=== PATIENT | female | born 1975 | race Caucasian/White ===

== ENCOUNTER 2017-11-01 12:12 | Emergency (ER) | payer BC ==
--- NOTE | 2017-11-01 12:32 | EDM.PDOC ---
ED HPI GENERAL MEDICAL PROBLEM - General Chief Complaint: Lower Extremity Injury/Pain Stated Complaint: left leg pain Time Seen by Provider: 11/01/17 12:31 Source of Information: Reports: Patient History Limitations: Reports: No Limitations - History of Present Illness INITIAL COMMENTS - FREE TEXT/NARRATIVE: HISTORY AND PHYSICAL: History of present illness: Patient is a 42-year-old female who presents to the emergency room with complaints of localized left inner calf pain and redness. She has noticed over the past 2 weeks she has had some dyspnea. Patient states she has a history of DVT and was previously on anticoagulants. She found out she had low QT which required her to stop her oral coagulant therapy. She denies any fever, chills, chest pain, abdominal pain, nausea, vomiting or diarrhea. Denies any recent injury or trauma. Review of systems: As per history of present illness and below otherwise all systems reviewed and negative. Past medical history: As per history of present illness and as reviewed below otherwise noncontributory. Surgical history: As per history of present illness and as reviewed below otherwise noncontributory. Social history: No reported history of drug or alcohol abuse. Family history: As per history of present illness and as reviewed below otherwise noncontributory. Physical exam: General: Well-developed and well-nourished 42-year-old female. Alert and oriented. Nontoxic appearing and in no acute distress. HEENT: Atraumatic, normocephalic, pupils equal and reactive bilaterally, negative for conjunctival pallor or scleral icterus, mucous membranes moist, throat clear, neck supple, nontender, trachea midline. No drooling or trismus noted. No meningeal signs Lungs: Clear to auscultation, breath sounds equal bilaterally, chest nontender. Heart: S1S2, regular rate and rhythm without overt murmur Abdomen: Soft, nondistended, nontender. Negative for masses or hepatosplenomegaly. Negative for costovertebral tenderness. Pelvis: Stable nontender. Genitourinary: Deferred. Rectal: Deferred. Skin: Small quarter sized area of redness which is tender to palpation, consistent with a superficial phlebitis. Multiple varicosities noted to the bilateral lower extremities. Otherwise skin is Intact, warm, dry. No lesions or rashes noted. Extremities: Atraumatic, moves all extremities per self without difficulty or deficits, negative for cords or calf pain. Neurovascular unremarkable. Neuro: Awake, alert, oriented. Cranial nerves II through XII unremarkable. Cerebellum unremarkable. Motor and sensory unremarkable throughout. Exam nonfocal. Notes: Lab work is within normal limits. Chest x-ray shows no infiltrate or pneumonia. Ultrasound of the left lower extremity shows no evidence of DVT. I did discuss the risks versus benefits of doing a CTA at this time, she would like the CT done to rule out a PE. I think this is appropriate as she does have high risk due to her comorbidities. CTA shows no acute cardiopulmonary findings. No pulmonary embolism was identified. There is a vague 2 cm asymmetrical annular tissue noted at the 3 o' clock position on the left breast. Did share these findings with the patient. She did state she is aware of the breast mass and does have a diagnostic mammogram coming up in a week. I encouraged her to follow with this closely. Other labs and ultrasound reports were shared with her. I encouraged her to use her NAMRATA hose. Rest ice elevate the extremities. In follow-up with her primary care provider. She voices understanding and is agreeable to plan of care. She denies any further questions at this time. Diagnostics: CBC, CMP, Troponin, Venous ultrasound, EKG, CXR, CTA Therapeutics: [] Impression: Superficial phlebitis, left lower extremity Plan: 1. Please use your NAMRATA hose while awake. 2. Rest and elevate the extremities when able. 3. Follow-up with your primary caregiver in the next 1-2 days. Return to the ED as needed and as discussed. Definitive disposition and diagnosis as appropriate pending reevaluation and review of above. lower leg and chest Pain Score (Numeric/FACES): 2 - Related Data Allergies Allergy/AdvReac Type Severity Reaction Status Date / Time No Known Allergies Allergy Verified 03/21/14 23:12 Home Meds: Home Meds Lisinopril 10 mg PO DAILY 03/21/14 [History] Propranolol [Inderal LA 24 Hr] 80 mg PO DAILY 11/01/17 [History] metFORMIN HCl [Metformin HCl ER] 500 mg PO BEDTIME 11/01/17 [History] Past Medical History Cardiovascular History: Reports: Hypertension, Other (See Below) Other Cardiovascular History: Lower QT 1 Hematologic History: Reports: Other (See Below) Other Hematologic History: DVT and bilateral vascular - Infectious Disease History Infectious Disease History: Reports: Chicken Pox - Past Surgical History HEENT Surgical History: Reports: Naso-Sinus Surgery GI Surgical History: Reports: Appendectomy, Cholecystectomy Female Surgical History: Reports: Kidney stone extraction, Lithotripsy/ESWL Social & Family History - Family History Family Medical History: Noncontributory - Tobacco Use Smoking Status *Q: Never Smoker Second Hand Smoke Exposure: No - Caffeine Use Caffeine Use: Reports: None - Alcohol Use Days Per Week of Alcohol Use: 1 Number of Drinks Per Day: 1 Total Drinks Per Week: 1 - Recreational Drug Use Recreational Drug Use: No Review of Systems - Review of Systems Review Of Systems: ROS reveals no pertinent complaints other than HPI. ED EXAM, GENERAL - Physical Exam Exam: See Below (See dictation) Course - Vital Signs Last Recorded V/S: Last Vital Signs Temp 97.3 F 11/01/17 12:22 Pulse 77 11/01/17 12:22 Resp 20 11/01/17 12:22 BP 146/94 H 11/01/17 12:22 Pulse Ox 100 11/01/17 12:22 - Orders/Labs/Meds Orders: Active Orders 24 hr Category Date Time Status EKG Documentation Completion [RC] STAT Care 11/01/17 12:30 Active Labs: Laboratory Tests 11/01/17 11/01/17 11/01/17 Range/Units 12:37 12:37 12:37 WBC 5.67 (4.0-11.0) K/uL RBC 4.90 (4.30-5.90) M/uL Hgb 14.8 (12.0-16.0) g/dL Hct 43.2 (36.0-46.0) % MCV 88.2 (80.0-98.0) fL MCH 30.2 (27.0-32.0) pg MCHC 34.3 (31.0-37.0) g/dL RDW Std Deviation 41.8 (28.0-62.0) fl RDW Coeff of Nandini 13 (11.0-15.0) % Plt Count 276 (150-400) K/uL MPV 9.80 (7.40-12.00) fL Neut % (Auto) 67.3 (48.0-80.0) % Lymph % (Auto) 22.8 (16.0-40.0) % [place] % (Auto) 7.6 (0.0-15.0) % Eos % (Auto) 1.9 (0.0-7.0) % Baso % (Auto) 0.4 (0.0-1.5) % Neut # (Auto) 3.8 (1.4-5.7) K/uL Lymph # (Auto) 1.3 (0.6-2.4) K/uL [place] # (Auto) 0.4 (0.0-0.8) K/uL Eos # (Auto) 0.1 (0.0-0.7) K/uL Baso # (Auto) 0.0 (0.0-0.1) K/uL Nucleated RBC % 0.0 /100WBC Nucleated RBCs # 0 K/uL INR 1.07 Sodium 141 (136-145) mmol/L Potassium 3.9 (3.5-5.1) mmol/L Chloride 103 (98-107) mmol/L Carbon Dioxide 30.1 (21.0-32.0) mmol/L BUN 12 (7.0-18.0) mg/dL Creatinine 0.7 (0.6-1.0) mg/dL Est Cr Clr Drug Dosing 113.21 mL/min Estimated GFR (MDRD) > 60.0 ml/min Glucose 119 H (74-106) mg/dL Calcium 9.7 (8.5-10.1) mg/dL Total Bilirubin 0.5 (0.2-1.0) mg/dL AST 23 (15-37) IU/L ALT 31 (14-63) IU/L Alkaline Phosphatase 66 (46-116) U/L Troponin I < 0.050 (0.000-0.056) ng/mL Total Protein 7.5 (6.4-8.2) g/dL Albumin 4.4 (3.4-5.0) g/dL Globulin 3.1 (2.0-3.5) g/dL Albumin/Globulin Ratio 1.4 (1.3-2.8) Meds: Medications Discontinued Medications Generic Name Dose Route Start Last Admin Trade Name Freq PRN Reason Stop Dose Admin Iopamidol 50 ml 11/01/17 14:09 11/01/17 14:11 Isovue Multipack-370 (76%) IVPUSH 11/01/17 14:10 50 ml ONETIME STA Administration Departure - Departure Time of Disposition: 14:33 Disposition: Home, Self-Care 01 Clinical Impression: Superficial phlebitis of left leg - Discharge Information Referrals: Sukumar Walker MD [Primary Care Provider] - Forms: ED Department Discharge Additional Instructions: The following information is given to patients seen in the emergency department who are being discharged to home. This information is to outline your options for follow-up care. We provide all patients seen in our emergency department with a follow-up referral. The need for follow-up, as well as the timing and circumstances, are variable depending upon the specifics of your emergency department visit. If you don't have a primary care physician on staff, we will provide you with a referral. We always advise you to contact your personal physician following an emergency department visit to inform them of the circumstance of the visit and for follow-up with them and/or the need for any referrals to a consulting specialist. The emergency department will also refer you to a specialist when appropriate. This referral assures that you have the opportunity for follow-up care with a specialist. All of these measure are taken in an effort to provide you with optimal care, which includes your follow-up. Under all circumstances we always encourage you to contact your private physician who remains a resource for coordinating your care. When calling for follow-up care, please make the office aware that this follow-up is from your recent emergency room visit. If for any reason you are refused follow-up, please contact the [facility] Emergency Department at and asked to speak to the emergency department charge nurse. [facility] [address] [place] [id number] 1. Please use your NAMRATA hose while awake. 2. Rest, warm compresses and elevate the extremities when able. 3. Follow-up with your primary care provider provider about the breast/ mammogram. 4. Follow-up with your primary caregiver in the next 1-2 days. Return to the ED as needed and as discussed. - My Orders Last 24 Hours: My Active Orders 11/01/17 12:30 EKG Documentation Completion [RC] STAT - Assessment/Plan Last 24 Hours: My Active Orders 11/01/17 12:30 EKG Documentation Completion [RC] STAT
[2017-11-01 13:16] LABS: CHLORIDE,CL 103 mmol/L (98-107); SODIUM,NA 141 mmol/L (136-145)
--- NOTE | 2017-11-01 13:17 | US ---
ULTRASOUND EXAMINATION OF the left lower extremity WITH DOPPLER HISTORY: Chest discomfort FINDINGS: Examination of the left leg was performed from the groin to the calf region. All visualized segments including common femoral, proximal greater saphenous, superficial femoral, popliteal and calf veins appear patent with good compressibility and augmentation. There is no evidence of deep vein thrombos is. IMPRESSION: No evidence of a DVT.
--- NOTE | 2017-11-01 13:18 | CR ---
EXAMINATION: Portable chest radiograph. HISTORY: Chest discomfort. FINDINGS: The trachea is midline. The cardiomediastinal silhouette is within normal limits. No pulmonary infilt rates, effusions or pneumothorax. Osseous structures appear unremarkable. IMPRESSION: No acute cardiopulmonary process.
[2017-11-01] MEDS ORDERED: Iopamidol 755 MG/ML 500 ML Multipack Bottle IVPUSH STA (14:09)
--- NOTE | 2017-11-01 14:25 | CT ---
EXAMINATION: CTA chest HISTORY: Chest pain COMPARISON: Radiograph from the same day. TECHNIQUE: Contiguous CT imaging obtained through the chest following the administration of 50 mL of Isovue-370 in the left antecubital fossa. Coronal and sagittal reconstructions obtained. FINDINGS: The lungs are clear without focal consolidation. No pleural effusion or pneumothorax. Mild air trapping within the right lung base. The heart is normal in size without a pericardial effusion. No mediastinal or hilar lymphadenopathy. The thoracic aorta is normal in caliber. The main and centra l pulmonary arteries are patent. Central airways are clear. There is a 2 cm asymmetric area within the left breast at the approximate 2 to 3:00 position. No susp icious osseous abnormalities identified. IMPRESSION: 1. No acute cardiopulmonary findings. 2. Vague 2 cm asymmetric area within the left breast. This may represent asymmetric glandular tissue however correlation with mammography is recommended. 3. No pulmonary embolism identified.
== END 2017-11-01 14:47 | disposition home or self-care (01) ==
LOC: MW.ED 12:12
DX: I80.02 Phlebitis and thrombophlebitis of superficial vessels of left lower extremity (principal); I10 Essential (primary) hypertension; Z79.899 Other long term (current) drug therapy
CPT/HCPCS: 36415; 71045; 71275; 80053; 84484; 85025; 85610; 93971; 99284; Q9967

== ENCOUNTER 2018-03-26 21:16 | Emergency (ER) | payer BC ==
--- NOTE | 2018-03-26 21:23 | EDM.PDOC ---
<Imelda Dai - Last Filed: 03/26/18 23:06> ED HPI GENERAL MEDICAL PROBLEM - General Stated Complaint: BLOODY NOSE HAS BEEN BLEEDING FOR AN HOUR Time Seen by Provider: 03/26/18 21:23 - History of Present Illness INITIAL COMMENTS - FREE TEXT/NARRATIVE: This is Dr. Dai dictating addendum note as I have assumed care of this case at 10 PM. The patient's history and physical as as above and her last chemotherapy was approximately 10 days ago. Patient has me that she has had a copious runny nose over the last several days and has been wiping it and manipulating it more than usual and this may be the etiology of this minor bleed. The patient had a nose clip on prior to my examination and the patient had bilateral mucosal excoriation especially along the septum bilaterally and there was no 1 area of discrete bleeding identified. The turbinates were slightly engorged. Wrist no bleeding in the posterior oropharynx. Afrin was instilled and we will continue to observe the patient. She is aware that her hemoglobin is 11.4 and her WBC count is 2.23 with an ANC of 379. I've advised her that she does need to contact her provider regarding her ANC but she is aware that she was going to be low anywhere from 10-16 days and she is right in that window. She has had no fevers and currently has no bleeding identified. The patient is on Xarelto and I've advised her that if we do not place a pack today that she will have to be especially watchful and thoughtful about any manipulation of the nose as with the excoriation that I've seen a can rebleed any time. I also instructed the patient on how to apply petroleum jelly to the mucosa of the nose to give it some for protection. I strongly advised her to contact her provider tomorrow about her counts and have strongly advised her to return to ED as needed. She will go home with a nasal clip. Impression: Anterior epis axis resolved with history of recent chemotherapy and Xarelto use for DVT Neutropenia with history of recent chemotherapy - Related Data Allergies Allergy/AdvReac Type Severity Reaction Status Date / Time No Known Allergies Allergy Verified 03/26/18 21:30 Home Meds: Home Meds Lisinopril 10 mg PO DAILY 03/21/14 [History] Propranolol [Inderal LA 24 Hr] 80 mg PO DAILY 11/01/17 [History] metFORMIN HCl [Metformin HCl ER] 500 mg PO BEDTIME 11/01/17 [History] Rivaroxaban [Xarelto] 10 mg PO DAILY 03/26/18 [History] ED ROS ENT - Review of Systems Review Of Systems: ROS reveals no pertinent complaints other than HPI. ED EXAM, ENT - Physical Exam Exam: See Below (See dictation) Course - Vital Signs Last Recorded V/S: Last Vital Signs Temp 96.6 F 03/26/18 23:22 Pulse 75 03/26/18 23:22 Resp BP 137/93 H 03/26/18 23:22 Pulse Ox 99 03/26/18 23:22 - Orders/Labs/Meds Labs: Laboratory Tests 03/26/18 03/26/18 Range/Units 21:56 21:56 WBC 2.23 L (4.0-11.0) K/uL RBC 3.77 L (4.30-5.90) M/uL Hgb 11.4 L (12.0-16.0) g/dL Hct 33.7 L (36.0-46.0) % MCV 89.4 (80.0-98.0) fL MCH 30.2 (27.0-32.0) pg MCHC 33.8 (31.0-37.0) g/dL RDW Std Deviation 47.9 (28.0-62.0) fl RDW Coeff of Nandini 15 (11.0-15.0) % Plt Count 173 (150-400) K/uL MPV 9.50 (7.40-12.00) fL Add Manual Diff YES Neutrophils % (Manual) 14 L (48.0-80.0) % Band Neutrophils % 3 % Lymphocytes % (Manual) 67 H (16.0-40.0) % Monocytes % (Manual) 16 H (0.0-15.0) % Nucleated RBC % 0.0 /100WBC Absolute Seg Neuts 0.3 L (1.4-5.7) Band Neutrophils # 0.1 Lymphocytes # (Manual) 1.5 (0.6-2.4) Monocytes # (Manual) 0.4 (0.0-0.8) Nucleated RBCs # 0 K/uL INR 1.10 Meds: Medications Discontinued Medications Generic Name Dose Route Start Last Admin Trade Name Freq PRN Reason Stop Dose Admin Oxymetazoline HCl 1 ml 03/26/18 21:57 03/26/18 22:28 Afrin Original 0.05% Nasal [place] MITCH 03/26/18 21:58 4 spray ONETIME ONE Administration Departure - Departure Time of Disposition: 23:07 Disposition: Home, Self-Care 01 Condition: Good Clinical Impression: Epistaxis Neutropenia Qualifiers: Neutropenia type: secondary to cancer chemotherapy Qualified Code(s): D70.1 - Agranulocytosis secondary to cancer chemotherapy; T45.1X5A - Adverse effect of antineoplastic and immunosuppressive drugs, initial encounter - Discharge Information Instructions: Nosebleed, [id number] Referrals: PCP,None [Primary Care Provider] - Forms: ED Department Discharge Additional Instructions: The following information is given to patients seen in the emergency department who are being discharged to home. This information is to outline your options for follow-up care. We provide all patients seen in our emergency department with a follow-up referral. The need for follow-up, as well as the timing and circumstances, are variable depending upon the specifics of your emergency department visit. If you don't have a primary care physician on staff, we will provide you with a referral. We always advise you to contact your personal physician following an emergency department visit to inform them of the circumstance of the visit and for follow-up with them and/or the need for any referrals to a consulting specialist. The emergency department will also refer you to a specialist when appropriate. This referral assures that you have the opportunity for followup care with a specialist. All of these measure are taken in an effort to provide you with optimal care, which includes your followup. Under all circumstances we always encourage you to contact your private physician who remains a resource for coordinating your care. When calling for followup care, please make the office aware that this follow-up is from your recent emergency room visit. If for any reason you are refused follow-up, please contact the [facility] emergency department at and ask to speak to the emergency department charge nurse. [facility] Primary care- Internal Medicine and Family [address] [address] Please moisturize the nasal lining as we showed with Vaseline or petroleum- based products and gently using a Q-tip. Please try to avoid manipulation of your nose and if bleeding or oozing restarts please apply the clip. Return to ER as needed and as discussed. Please contact her provider/oncologist regarding your count numbers for further advice regarding that. <Raphael Hernandez E - Last Filed: 03/29/18 11:57> ED HPI GENERAL MEDICAL PROBLEM - General Source of Information: Reports: Patient History Limitations: Reports: No Limitations - History of Present Illness INITIAL COMMENTS - FREE TEXT/NARRATIVE: HISTORY AND PHYSICAL: History of present illness: Patient is a 42-year-old female who presents to the emergency room with complaints of a nosebleed. She states she was walking out of the grocery store when her left there started bleeding. She tried to apply pressure but did have multiple clots and continuous bleeding regardless of her attempt. She is currently on Xarelto as she has had a DVT in the past. She is currently undergoing chemotherapy for breast cancer. Does plan to have mastectomy in the near future. She denies any recent injury, trauma or falls. Denies any fever, chills, chest pain, shortness of breath or cough. Denies any GI or symptoms. Denies any headache, change in vision, syncope or near syncope. Review of systems: As per history of present illness and below otherwise all systems reviewed and negative. Past medical history: As per history of present illness and as reviewed below otherwise noncontributory. Surgical history: As per history of present illness and as reviewed below otherwise noncontributory. Social history: No reported history of drug or alcohol abuse. Family history: As per history of present illness and as reviewed below otherwise noncontributory. Physical exam: General: Well-developed and well-nourished 42-year-old female. Alert and oriented. Nontoxic appearing and in no acute distress. HEENT: Atraumatic, normocephalic, pupils equal and reactive bilaterally, negative for conjunctival pallor or scleral icterus, mucous membranes moist, throat clear, neck supple, nontender, trachea midline. No drooling or trismus noted. No meningeal signs Lungs: Clear to auscultation, breath sounds equal bilaterally, chest nontender. Heart: S1S2, regular rate and rhythm without overt murmur Abdomen: Soft, nondistended, nontender. Negative for masses or hepatosplenomegaly. Negative for costovertebral tenderness. Pelvis: Stable nontender. Genitourinary: Deferred. Rectal: Deferred. Skin: Intact, warm, dry. No lesions or rashes noted. Extremities: Atraumatic, negative for cords or calf pain. Neurovascular unremarkable. Neuro: Awake, alert, oriented. Cranial nerves II through XII unremarkable. Cerebellum unremarkable. Motor and sensory unremarkable throughout. Exam nonfocal. Notes: Nasal clamp was placed on the nares well out to sit for approximately 15 minutes. Patient is agreeable to lab work. Did explain to the patient that she may need a Rhino Rocket if the epistaxis does not subside with direct pressure. She voices understanding and is agreeable to plan of care. Diagnostics: CBC, PT/INR Therapeutics: Nasal Clamp, Afrin Nasal [place] Impression: Plan: Definitive disposition and diagnosis as appropriate pending reevaluation and review of above. Past Medical History Cardiovascular History: Reports: Hypertension, Other (See Below) Other Cardiovascular History: Lower QT 1 Hematologic History: Reports: Other (See Below) Other Hematologic History: DVT and bilateral vascular - Infectious Disease History Infectious Disease History: Reports: Chicken Pox - Past Surgical History HEENT Surgical History: Reports: Naso-Sinus Surgery GI Surgical History: Reports: Appendectomy, Cholecystectomy Female Surgical History: Reports: Kidney stone extraction, Lithotripsy/ESWL Social & Family History - Family History Family Medical History: Noncontributory - Caffeine Use Caffeine Use: Reports: None Course - Vital Signs Last Recorded V/S: Last Vital Signs Temp 96.6 F 03/26/18 23:22 Pulse 75 03/26/18 23:22 Resp BP 137/93 H 03/26/18 23:22 Pulse Ox 99 03/26/18 23:22 - Orders/Labs/Meds Labs: Laboratory Tests 03/26/18 03/26/18 Range/Units 21:56 21:56 WBC 2.23 L (4.0-11.0) K/uL RBC 3.77 L (4.30-5.90) M/uL Hgb 11.4 L (12.0-16.0) g/dL Hct 33.7 L (36.0-46.0) % MCV 89.4 (80.0-98.0) fL MCH 30.2 (27.0-32.0) pg MCHC 33.8 (31.0-37.0) g/dL RDW Std Deviation 47.9 (28.0-62.0) fl RDW Coeff of Nandini 15 (11.0-15.0) % Plt Count 173 (150-400) K/uL MPV 9.50 (7.40-12.00) fL Add Manual Diff YES Neutrophils % (Manual) 14 L (48.0-80.0) % Band Neutrophils % 3 % Lymphocytes % (Manual) 67 H (16.0-40.0) % Monocytes % (Manual) 16 H (0.0-15.0) % Nucleated RBC % 0.0 /100WBC Absolute Seg Neuts 0.3 L (1.4-5.7) Band Neutrophils # 0.1 Lymphocytes # (Manual) 1.5 (0.6-2.4) Monocytes # (Manual) 0.4 (0.0-0.8) Nucleated RBCs # 0 K/uL INR 1.10 Meds: Medications Discontinued Medications Generic Name Dose Route Start Last Admin Trade Name Freq PRN Reason Stop Dose Admin Oxymetazoline HCl 1 ml 03/26/18 21:57 03/26/18 22:28 Afrin Original 0.05% Nasal [place] MITCH 03/26/18 21:58 4 spray ONETIME ONE Administration
[2018-03-26] MEDS ORDERED: Oxymetazoline 0.05% Nasal Spray 15 ML Bottle NAS ONE (21:57)
== END 2018-03-26 23:22 | disposition home or self-care (01) ==
LOC: MW.ED 21:16
DX: R04.0 Epistaxis (principal); I10 Essential (primary) hypertension; I82.403 Acute embolism and thrombosis of unspecified deep veins of lower extremity, bilateral; Z79.899 Other long term (current) drug therapy; Z79.84 Long term (current) use of oral hypoglycemic drugs; Z79.01 Long term (current) use of anticoagulants
CPT/HCPCS: 36415; 85025; 85610; 99283; A9270

== ENCOUNTER 2021-02-26 14:43 | Emergency (ER) | payer BC ==
--- NOTE | 2021-02-26 15:26 | EDM.PDOC ---
ED HPI GENERAL MEDICAL PROBLEM - General Chief Complaint: Genitourinary Problem Stated Complaint: UTI OR BLADDEER INFECTION Time Seen by Provider: 02/26/21 14:44 Source of Information: Reports: Patient History Limitations: Reports: No Limitations - History of Present Illness INITIAL COMMENTS - FREE TEXT/NARRATIVE: HISTORY AND PHYSICAL: History of present illness: Patient is a 45-year-old female who presents to the emergency room with complaints of vaginal itching and dysuria over the past 2 days. Patient has a history of breast cancer, diagnosed in 2017. For elective purposes she did also have a complete hysterectomy August 2020. She states symptoms started with dysuria and suprapubic discomfort last evening. This morning she had an " itching sensation" in the vaginal. Denies any discharge, lesions or sores. No new sexual partners, no concern for STIs. Patient denies any fever, chills, headache, change in vision, syncope or near syncope. Denies any chest pain, back pain, shortness of breath or cough. Denies any nausea, vomiting, diarrhea, constipation nor blood in urine or stool. Patient has been eating and drinking appropriately. Review of systems: As per history of present illness and below otherwise all systems reviewed and negative. Past medical history: As per history of present illness and as reviewed below otherwise noncontributory. Surgical history: As per history of present illness and as reviewed below otherwise noncontributory. Social history: See social history for further information Family history: As per history of present illness and as reviewed below otherwise noncontributory. Physical exam: General: Well developed and well nourished. Alert and orientated x 3. Nontoxic in appearance and in no acute distress. Vital signs are stable and have been reviewed by me. Nursing notes were reviewed. HEENT: Atraumatic, normocephalic, pupils equal and reactive bilaterally, negative for conjunctival pallor or scleral icterus, mucous membranes moist, TMs normal bilaterally, throat clear, neck supple, nontender, trachea midline. No drooling or trismus noted. No meningeal signs. No hot potato voice noted. Lungs: Clear to auscultation bilaterally. No wheezes, rales, or rhonchi. Chest nontender. Normal work of breathing, no accessory muscles used. Heart: S1S2, regular rate and rhythm without overt murmur, gallops, or rubs. No JVD. No peripheral edema Abdomen: Soft, nondistended, nontender. Normoactive bowel sounds. Negative for masses or costovertebral tenderness. Skin: Intact, warm, dry. No lesions or rashes noted. Hematologic: No petechiae or purpra. Mucosa appropriate color and normal nail bed color and refill. Extremities: Atraumatic, moves all extremities per self without difficulty or deficits, negative for cords or calf pain. Neurovascular unremarkable. Neuro: Awake, alert, oriented. Cranial nerves II through XII unremarkable. Cerebellum unremarkable. Motor and sensory unremarkable throughout. Exam n onfocal. Psychiatric: Mood and affect are appropriate. Normal thought process. Answering questions appropriately. Notes: *This patient was seen and evaluated during the 2019 SARS-CoV-2 novel coronav irus pandemic period. Community viral transmission is ongoing at time of this encounter and the emergency department is operating under pandemic response procedures. Patient is a 45-year-old female who presents to the emerge urgency room complaints of dysuria, suprapubic pain and vaginal itching. She does have a history of breast cancer and within the past 6 to 7 months she had a hysterectomy. She has not had any postoperative complications and does doctor in [place] for her oncology's last gynecological issues. She is concerned she may have a bladder infection. Due to the itching aspect I will add a EBENEZER swab, patient is able to self swab as the pelvic bed and private rooms are full at this time. Patient's urine shows a UTI with 23-28 WBCs and few bacteria. Culture has been added. EBENEZER swab is positive for Gardnerella. We will do the vaginal insert once nightly over the next 5 nights. I have talked with the patient about today's findings, in addition to providing specific details for plan of care. Encouraged her to follow-up with her primary care and continue to monitor his symptoms closely as she may require further work-up if symptoms do not resolve. Reassessment at the time of disposition demonstrates that the patient is in no acute distress. The patient is stable for discharge, counseling was provided and we discussed in great detail signs and symptoms that would prompt them to return to the Emergency Department. Medication, follow up and supportive care measures were reviewed and discussed. Voices understanding and is agreeable to plan of care. Denies any further questions or concerns at this time. Diagnostics: UA, Sourav/Chlam, Tric/BV/Yeast Therapeutics: Augmentin Prescription: Flagyl gel, Augmentin 500/125 twice daily x7 days Impression: Bacterial vaginosis Urinary tract infection Plan: 1. You were evaluated today on an emergent basis. Your labs show a bladder infection and bacterial vaginosis. Take the oral antibiotic as prescribed and use the Metronidazole vaginal insert, 1 applicatorful once nightly for the next 5 days. 2. You can alternate Tylenol and ibuprofen as needed for pain and fever management. 3. We encourage you to follow up with your primary care provider and/or recommended specialist in the next few days for re-evaluation and further care/management. 4. If your symptoms should worsen, new symptoms develop or any of the signs and symptoms we discussed should arise please return to the emergency room or call 911 (if needed). Definitive disposition and diagnosis as appropriate pending reevaluation and review of above. Pelvic Pain Score (Numeric/FACES): 4 - Related Data Allergies Allergy/AdvReac Type Severity Reaction Status Date / Time No Known Allergies Allergy Verified 02/26/21 14:53 Home Meds: Home Meds Lisinopril 10 mg PO DAILY 03/21/14 [History] Propranolol [Inderal LA 24 Hr] 80 mg PO DAILY 11/01/17 [History] metFORMIN HCl [Metformin HCl ER] 500 mg PO BEDTIME 11/01/17 [History] Rivaroxaban [Xarelto] 10 mg PO DAILY 03/26/18 [History] Amoxicillin/Clavulanate K [Augmentin 500-125 MG] 1 tab PO BID 7 Days #14 tablet 02/26/21 [Rx] Anastrozole [Arimidex] 1 tab PO DAILY 02/26/21 [History] Famotidine 1 tab PO BID 02/26/21 [History] Loratadine [Claritin] 10 mg PO DAILY 02/26/21 [History] metroNIDAZOLE [Metronidazole] 1 applicful VG QPM 5 Days #1 gel.w.appl 02/26/21 [Rx] Past Medical History Cardiovascular History: Reports: Hypertension, Other (See Below) Other Cardiovascular History: Lower QT 1 SOCIAL MEDIA COORDINATOR History: Reports: Polycystic Ovaries, Endocrine/Metabolic History: Reports: Obesity/BMI 30+ Hematologic History: Reports: Other (See Below) Other Hematologic History: DVT and bilateral vascular Oncologic (Cancer) History: Reports: Breast Other Oncologic History: invasive ductal - Infectious Disease History Infectious Disease History: Reports: Chicken Pox - Past Surgical History HEENT Surgical History: Reports: Naso-Sinus Surgery GI Surgical History: Reports: Appendectomy, Cholecystectomy Female Surgical History: Reports: Kidney stone extraction, Lithotripsy/ESWL, Other (See Below) Other Female Surgeries/Procedures: Breast cancer 2018 Social & Family History - Family History Family Medical History: No Pertinent Family History - Tobacco Use Tobacco Use Status *Q: Never Tobacco User - Caffeine Use Caffeine Use: Reports: Coffee - Recreational Drug Use Recreational Drug Use: No ED ROS GENERAL - Review of Systems Review Of Systems: Comprehensive ROS is negative, except as noted in HPI. ED EXAM, RENAL/ - Physical Exam Exam: See Below (See dictation) Course - Vital Signs Last Recorded V/S: Last Vital Signs Temp 97.9 F 02/26/21 14:56 Pulse 84 02/26/21 16:25 Resp 18 02/26/21 14:56 BP 120/77 02/26/21 16:25 Pulse Ox 94 L 02/26/21 16:25 - Orders/Labs/Meds Orders: Active Orders 24 hr Category Date Time Status CHLAMYDIA AND GONORRHEA BY TMA Stat Lab 02/26/21 15:13 Received CULTURE URINE [MREF] Stat Lab 02/26/21 15:05 Received Labs: Laboratory Tests 02/26/21 02/26/21 Range/Units 15:05 15:13 Urine Color YELLOW Urine Appearance SLT CLOUDY Urine pH 7.0 (5.0-8.0) Ur Specific [place] 1.010 (1.001-1.035) Urine Protein NEGATIVE (NEGATIVE) mg/dL Urine Glucose (UA) 250 H (NEGATIVE) mg/dL Urine Ketones NEGATIVE (NEGATIVE) mg/dL Urine Occult Blood MODERATE H (NEGATIVE) Urine Nitrite NEGATIVE (NEGATIVE) Urine Bilirubin NEGATIVE (NEGATIVE) Urine Urobilinogen 0.2 (<2.0) EU/dL Ur Leukocyte Esterase MODERATE H (NEGATIVE) Urine RBC 0-2 (0-2/HPF) Urine WBC 23-28 (0-5/HPF) Ur Epithelial Cells FEW (NONE-FEW) Urine Bacteria FEW (NEGATIVE) Urine Mucus LIGHT (NONE-MOD) Mary species DNA NEGATIVE (NEGATIVE) Gardnerella DNA Probe POSITIVE H (NEGATIVE) Trichomonas DNA Probe NEGATIVE (NEGATIVE) Meds: Medications Discontinued Medications Generic Name Dose Route Start Last Admin Trade Name Tripq PRN Reason Stop Dose Admin Amoxicillin/Clavulanate Potassium 1 tab 02/26/21 16:06 02/26/21 16:24 Amoxicillin/Clavulanate K 500-125 Mg Tab PO 02/26/21 16:07 1 tab ONETIME ONE Administration Departure - Departure Time of Disposition: 16:34 Disposition: Home, Self-Care 01 Clinical Impression: UTI, Urinary tract infectious disease, Bacterial vaginosis - Discharge Information Prescriptions: Amoxicillin/Clavulanate K [Augmentin 500-125 MG] 1 tab PO BID 7 Days #14 tablet metroNIDAZOLE [Metronidazole] 1 applicful VG QPM 5 Days #1 gel.w.appl Instructions: Urinary Tract Infection, Adult, [id number], Bacterial Vaginosis, [id number] Referrals: Sukumar Walker MD [Primary Care Provider] - Forms: ED Department Discharge Additional Instructions: The following information is given to patients seen in the emergency department who are being discharged to home. This information is to outline your options for follow-up care. We provide all patients seen in our emergency department with a follow-up referral. The need for follow-up, as well as the timing and circumstances, are variable depending upon the specifics of your emergency department visit. If you don't have a primary care physician on staff, we will provide you with a referral. We always advise you to contact your personal physician following an emergency department visit to inform them of the circumstance of the visit and for follow-up with them and/or the need for any referrals to a consulting specialist. The emergency department will also refer you to a specialist when appropriate. This referral assures that you have the opportunity for follow-up care with a specialist. All of these measure are taken in an effort to provide you with optimal care, which includes your follow-up. Under all circumstances we always encourage you to contact your private physician who remains a resource for coordinating your care. When calling for follow-up care, please make the office aware that this follow-up is from your recent emergency room visit. If for any reason you are refused follow-up, please contact the [facility] at and asked to speak to the emergency department charge nurse. [facility] [address] [place] [id number] [facility] [address] [place] [address] Thank you for choosing the [facility] emergency department in [place] for your medical needs today. It was a pleasure caring for you. Today you were seen in the emergency department for urinary symptoms. 1. You were evaluated today on an emergent basis. Your labs show a bladder infection and bacterial vaginosis. Take the oral antibiotic as prescribed and use the Metronidazole vaginal insert, 1 applicatorful once nightly for the next 5 days. 2. You can alternate Tylenol and ibuprofen as needed for pain and fever management. 3. We encourage you to follow up with your primary care provider and/or recommended specialist in the next few days for re-evaluation and further care/management. 4. If your symptoms should worsen, new symptoms develop or any of the signs and symptoms we discussed should arise please return to the emergency room or call 911 (if needed). Sepsis Event Note (ED) - Focused Exam Vital Signs: Vital Signs Temp Pulse Resp BP Pulse Ox 02/26/21 16:25 84 120/77 94 L 02/26/21 14:56 97.9 F 83 18 132/82 96 - My Orders Last 24 Hours: My Active Orders 02/26/21 15:05 CULTURE URINE [MREF] Stat 02/26/21 15:13 CHLAMYDIA AND GONORRHEA BY TMA Stat - Assessment/Plan Last 24 Hours: My Active Orders 02/26/21 15:05 CULTURE URINE [MREF] Stat 02/26/21 15:13 CHLAMYDIA AND GONORRHEA BY TMA Stat
[2021-02-26] MEDS ORDERED: Amoxicillin/Clavulanate K 500-125 MG Tab PO ONE (16:06)
[2021-02-28 14:01] LABS: C.TRACHOMATIS BY TMA Negative (Negative); N.GONORRHOEAE BY TMA Negative (Negative)
== END 2021-02-26 16:45 | disposition home or self-care (01) ==
LOC: MW.ED 14:43
DX: N76.0 Acute vaginitis (principal); N39.0 Urinary tract infection, site not specified; B96.89 Other specified bacterial agents as the cause of diseases classified elsewhere; I10 Essential (primary) hypertension; E66.9 Obesity, unspecified; Z68.41 Body mass index [BMI] 40.0-44.9, adult
CPT/HCPCS: 81001; 87086; 87480; 87491; 87510; 87591; 87660; 99283; A9270

== ENCOUNTER 2021-11-24 22:21 | Emergency (ER) | payer BC ==
[2021-11-24] MEDS ORDERED: Lactated Ringers 1,000 ML IV STA ×2 (23:00)
[2021-11-24 23:45] LABS: BLOOD UREA NITROGEN,BUN 15 mg/dL (7.0-18.0); CARBON DIOXIDE,CO2 22.5 mmol/L (21.0-32.0); CHLORIDE,CL 101 mmol/L (98-107); GLUCOSE RANDOM 143 mg/dL (74-106); POTASSIUM,K 3.7 mmol/L (3.5-5.1); SODIUM,NA 137 mmol/L (136-145)
== END 2021-11-25 01:37 | disposition home or self-care (01) ==
LOC: MW.ED 22:21
DX: N20.0 Calculus of kidney (principal); R50.9 Fever, unspecified; I10 Essential (primary) hypertension; E11.9 Type 2 diabetes mellitus without complications; E66.9 Obesity, unspecified; Z68.37 Body mass index [BMI] 37.0-37.9, adult; Z79.899 Other long term (current) drug therapy; Z79.01 Long term (current) use of anticoagulants; Z20.822 Contact with and (suspected) exposure to COVID-19
CPT/HCPCS: 36415; 74176; 80053; 81001; 81025; 83605; 85025; 85610; 87040; 87635; 99284; J7120; U0002

== ENCOUNTER 2023-05-07 22:20 | Emergency (ER) | payer BC ==
[2023-05-07] MEDS ORDERED: HYDROmorphone 1 MG/ML Syringe IM ONE (22:33)
== END 2023-05-07 23:29 | disposition home or self-care (01) ==
LOC: MW.ED 22:20
DX: S29.9XXA Unspecified injury of thorax, initial encounter (principal); I10 Essential (primary) hypertension; E11.9 Type 2 diabetes mellitus without complications; E66.9 Obesity, unspecified; Z68.30 Body mass index [BMI] 30.0-30.9, adult; Z79.84 Long term (current) use of oral hypoglycemic drugs; Z79.01 Long term (current) use of anticoagulants; Z79.899 Other long term (current) drug therapy; X58.XXXA Exposure to other specified factors, initial encounter
CPT/HCPCS: 71250; 96372; 99283; J1170